=== PATIENT | female | born 1990 | race Caucasian/White ===

== ENCOUNTER 2018-09-06 10:05 | Day surgery (SDC) | payer OTHER ==
[2018-09-06] MEDS ORDERED: Betamethasone Acetate/Betamethasone Sod Phosphate 30 MG/5 ML MDV ONE (10:57)
[2018-09-06] MEDS ORDERED: Lidocaine 2% 5 ML SDV ONE (10:57)
[2018-09-06] MEDS ORDERED: Ropivacaine 0.5% 5 MG/ML 30 ML SDV ONE (10:57)
[2018-09-06] MEDS ORDERED: Iopamidol 408 MG/ML 50 ML SDV ONE (10:57)
--- NOTE | 2018-09-07 16:08 | OR ---
SURGEON: Fransisca Villalpando D.O. DATE OF PROCEDURE: 09/06/2018 PRIMARY SURGEON: Fransisca Villalpando DO. OPERATING ROOM STAFF: 1. Cecilia Hoffman. 2. Viviana Delatorre RN. 3. RT Ting. WOUND CLASS: I. PROCEDURE PERFORMED: 1. Interlaminar epidural steroid injection at T11-T12. 2. Fluoroscopic guidance for needle placement. 3. Local with oral valium for sedation. SCREENING QUESTIONS: The patient answered "no" to all of the following questions: 1. Are you allergic to iodine, Betadine or latex? 2. Do you have a bleeding disorder? 3. Do you have any joint replacements, heart valve replacements, or a pacemaker? 4. Are you allergic to anti-inflammatories or blood thinners? 5. Do you have any current local or systemic infections? The patient's other symptoms to be treated include numbness, paresthesia, dysesthesia or hypoesthesia referred into the left lower extremity or any weakness in the involved myotome. This procedure is being performed in accordance with national guidelines as written by the [employer] (MARQUISE). DESCRIPTION OF PROCEDURE: The patient had the procedure thoroughly explained including risks, benefits and alternatives. Consent was signed in my clinic indicating understanding and willingness to proceed. The patient presented to [facility] where the patient was escorted to the dressing room to disrobe and change into a hospital gown. Preoperative vital signs were taken and stable. The patient reported that Valium was taken prior to the procedure. The patient was brought to the procedure room and placed in the prone position on the table. A pillow was placed under the abdomen in order to flatten the lumbar lordosis. The back was prepped with ChloraPrep and sterilely draped. All personnel in the operating room were dressed in appropriate attire including surgical scrubs, head and shoe covers. This was to ensure sterility while in the treatment room. During the time fluoroscopy was in use, all personnel in the operating room wore lead medina with thyroid collars. Sterile technique was used during the procedure. The fluoroscope was placed for the thoracic T11-12 epidural steroid injection. There was no sign of infection at the skin site for needle insertion. The skin was anesthetized with 2% lidocaine with a 27 gauge 1-1/2 inch needle. Then a 20 guage tooughy epidural needle was advanced with loss of resistance technique under direct fluoroscopic guidance into the epidural space. The needle position was verified in three views; AP, oblique and lateral, with 0.2 cubic centimeters increments of Isovue-200 dye. No intravascular flow pattern was observed under live fluoroscopy. A total of 12 milligrams of Celestone was slowly injected after negative aspiration of heme, cerebrospinal fluid and no paresthesias were noted. Then increments of local was injected and the needle was cleared prior to removal from the skin. No adverse reactions were noted. The patient was brought to the recovery room awake and in good condition by my staff. The patient was monitored and discharge instructions were given after a brief stay in the recovery area. Both oral and written discharge and follow up instructions were given. The patient will follow up in the clinic in 3-4 weeks post procedure to evaluate the efficacy. The patient verbalized understanding including understanding of those signs and symptoms that would require emergency care and knows how to contact the office if there are any problems or questions in the meantime. Preop Pain 8/10 POSTOPERATIVE PAIN: 0/10. FOLLOWUP: Follow up in Pain Clinic in 3 weeks. COLIN / BRIJESH /[id number] YNES
== END 2018-09-06 13:51 ==
LOC: MW.SDS 10:05
PROVIDERS: ATTEND Anesthesiology
DX: M54.6 Pain in thoracic spine (principal); M25.551 Pain in right hip; M25.552 Pain in left hip; G43.909 Migraine, unspecified, not intractable, without status migrainosus; G44.89 Other headache syndrome; Z79.891 Long term (current) use of opiate analgesic
CPT/HCPCS: 62323; 81025; J0702; J2795; Q9966; J2001

== ENCOUNTER 2022-08-06 05:02 | Inpatient (IN) | payer OTHER ==
[2022-08-06] MEDS: Lactated Ringers 1,000 ML IV SCH ×3 (05:30→10:09)
[2022-08-06] MEDS ORDERED: Carboprost Tromethamine 250 MCG/1 ML Amp IM PRN (05:39)
[2022-08-06] MEDS ORDERED: Water For Irrigation,Sterile 1,000 ML Container IRR PRN (05:39)
[2022-08-06] MEDS ORDERED: Butorphanol 1 MG/ML SDV IVPUSH PRN (05:39)
[2022-08-06] MEDS ORDERED: Terbutaline 1 MG/ML SDV SUBCUT PRN (05:39)
[2022-08-06] MEDS ORDERED: Misoprostol 200 MCG Tab PO PRN (05:39)
[2022-08-06] MEDS ORDERED: Sodium Chloride 0.9% 2.5 ML Syringe FLUSH PRN (05:39)
[2022-08-06] MEDS ORDERED: Tranexamic Acid 1,000 MG in Sodium Chloride 0.9% 100 ML IV PRN (05:39)
[2022-08-06] MEDS ORDERED: Sodium Chloride 0.9% 10 ML Syringe FLUSH PRN (05:39)
[2022-08-06] MEDS ORDERED: Sodium Chloride 0.9% 20 ML SDV IV PRN (05:39)
[2022-08-06] MEDS ORDERED: Methylergonovine 0.2 MG/1 ML Amp IM PRN (05:39)
[2022-08-06] MEDS ORDERED: Ondansetron 4 MG/2 ML SDV IVPUSH PRN (05:39)
[2022-08-06] MEDS ORDERED: Lidocaine 1% 50 ML MDV INJECT PRN (05:39)
[2022-08-06] MEDS ORDERED: Oxytocin/0.9 % Sodium Chloride 30 UNIT/500 ML BAG IV SCH ×2 (05:45)
[2022-08-06] MEDS ORDERED: Ropivacaine/PF 400 MG/200 ML PCA ONE (08:19)
[2022-08-06] MEDS ORDERED: Bupivacaine 0.5% 10 ML SDV ONE (08:19)
[2022-08-06] MEDS ORDERED: Phenylephrine HCl 0.5 MG/5 ML AMP IVPUSH PRN (08:54)
[2022-08-06] MEDS ORDERED: ePHEDrine 50 MG/ML SDV IVPUSH PRN ×2 (08:54)
[2022-08-06] MEDS ORDERED: Ropivacaine HCl/PF 400 MG in Premix Bag 1 BAG EPIDUR SCH (09:00)
[2022-08-06] MEDS ORDERED: Benzocaine/Menthol 20%-0.5% Spray 78 GM Cannister TOP PRN (13:38)
[2022-08-06] MEDS ORDERED: Bisacodyl 10 MG Supp RECTAL PRN (13:38)
[2022-08-06] MEDS ORDERED: Acetaminophen 500 MG Tab PO PRN (13:38)
[2022-08-06] MEDS ORDERED: Witch Hazel Medicated Pads 40/Jar TOP PRN (13:38)
[2022-08-06] MEDS ORDERED: Lanolin 100% Cream 7 GM Tube TOP PRN (13:38)
[2022-08-06] MEDS ORDERED: Ibuprofen 400 MG Tab PO PRN (13:38)
[2022-08-06] MEDS ORDERED: oxyCODONE 5 MG Tab PO PRN (13:38)
[2022-08-06] MEDS: Ibuprofen 800 MG Tab PO PRN (18:37)
[2022-08-06] MEDS: Docusate Sodium 100 MG Cap PO PRN (19:44)
[2022-08-06] MEDS: Acetaminophen 500 MG Tab PO PRN (19:44)
[2022-08-07] MEDS: Docusate Sodium 100 MG Cap PO PRN (08:17)
[2022-08-07] MEDS: Ibuprofen 800 MG Tab PO PRN ×2 (08:17→18:40)
[2022-08-07] MEDS: Acetaminophen 500 MG Tab PO PRN ×2 (15:34→20:59)
[2022-08-08] MEDS: Ibuprofen 800 MG Tab PO PRN (00:40)
[2022-08-08] MEDS: Acetaminophen 500 MG Tab PO PRN (04:11)
== END 2022-08-08 11:09 | disposition home or self-care (01) | DRG 807 ==
LOC: MW.OBCHECK 05:02 → MW.OB 05:03 → MW.OBCHECK 05:04 → MW.OB 05:05 → OBSVTOIN 13:18 → MW.OB 18:05
PROVIDERS: ADMIT Obstetrics & Gynecology; ATTEND Obstetrics & Gynecology
PROC: 10D07Z6 Extraction of Products of Conception, Vacuum, Via Natural or Artificial Opening (ICD-10-PCS; principal; 2022-08-06)
PROC: 10907ZC Drainage of Amniotic Fluid, Therapeutic from Products of Conception, Via Natural or Artificial Opening (ICD-10-PCS; 2022-08-06)
PROC: 0HQ9XZZ Repair Perineum Skin, External Approach (ICD-10-PCS; 2022-08-06)
PROC: 3E0R3BZ Introduction of Anesthetic Agent into Spinal Canal, Percutaneous Approach (ICD-10-PCS; 2022-08-06)
PROC: 00HU33Z Insertion of Infusion Device into Spinal Canal, Percutaneous Approach (ICD-10-PCS; 2022-08-06)
DX: O98.32 Other infections with a predominantly sexual mode of transmission complicating childbirth (principal); Z37.0 Single live birth; O76 Abnormality in fetal heart rate and rhythm complicating labor and delivery; A60.09 Herpesviral infection of other urogenital tract; Z3A.39 39 weeks gestation of pregnancy; O99.03 Anemia complicating the puerperium; D64.9 Anemia, unspecified
CPT/HCPCS: 01967; 36415; 51702; 59025; 59409; 82803; 85014; 85018; 85027; 86592; 86850; 86900; 86901; A9270-GY; J2590; J2795; J3490; J7120